=== PATIENT | female | born 1955 | race Caucasian/White ===

== ENCOUNTER → 2016-10-02 | Outpatient (CLI) | payer OTHER ==
--- NOTE | 2016-10-02 11:10 | DX ---
Left great toe 3 views HISTORY: Evaluate healing. FINDINGS: Compared September 10, 2016. Residual lucency of healed fracture of the proximal phalanx is barely detectable on the oblique projection, only. IMPRESSION: Healed fracture of proximal phalanx of left great toe.
== END ==
LOC: BMCIMAGING 10:41
PROVIDERS: ATTEND Podiatrist Foot & Ankle Surgery
DX: Z09 Encounter for follow-up examination after completed treatment for conditions other than malignant neoplasm (principal); Z87.81 Personal history of (healed) traumatic fracture

== ENCOUNTER → 2017-11-05 | Outpatient (CLI) | payer OTHER | LOC: BMCIMAGING 12:13 | PROVIDERS: ATTEND Physician Assistant Medical | DX: Z12.31 Encounter for screening mammogram for malignant neoplasm of breast (principal) ==

== ENCOUNTER → 2018-04-27 | Outpatient (CLI) | payer OTHER | DX: Z13.820 Encounter for screening for osteoporosis (principal); Z78.0 Asymptomatic menopausal state; M81.0 Age-related osteoporosis without current pathological fracture ==